=== PATIENT | male | born 1995 | race Caucasian/White ===

== ENCOUNTER 2018-08-26 10:25 | Emergency (ER) | payer SELFPAY ==
[2018-08-26] MEDS ORDERED: IBUPROFEN 400 MG TAB ONE (11:17)
[2018-08-26 11:25] LABS: Absolute Lymphocytes (CBC) 2.2 K/uL (0.7-4.9); Absolute Neutrophil 5.3 K/uL (1.8-8.0); Basophils % 0.7 % (0-1.3); Eosinophils % 1.2 % (0-4.4); Hematocrit 44.6 % (39.6-49.0); Lymphocytes % 25.1 % (15.3-44.8); MPV 8.8 fL (7.6-11.3); Monocytes % 11.7 % (3.3-12.3); RBC Red Blood Cell Count 4.77 M/uL (4.33-5.43)
--- NOTE | 2018-08-26 11:34 | RAD REPORT ---
EXAM DESCRIPTION: RAD - Chest Single View - 08/26/2018 11:23 am CLINICAL HISTORY: CHEST PAIN Chest pain. COMPARISON: No comparisons FINDINGS: Portable technique limits examination quality. The lungs are grossly clear. The heart is normal in size. No displaced fractures. IMPRESSION: No acute intrathoracic process suspected.
--- NOTE | 2018-08-26 11:57 | EKG ---
Test Date: 2018-08-26 Test Time: 10:34:56 Post Form Remover: AMANDA MEASUREMENT RESULTS: Intervals: Rate: 72 MO: 150 QRSD: 80 QT: 366 QTc: 400 [place]: P: 44 MO: 150 QRS: 88 T: 57 INTERPRETIVE STATEMENTS: Normal sinus rhythm with sinus arrhythmia Normal ECG No previous ECG available for comparison Electronically Signed On 08-26-18 11:57:04 ELECTROTYPE CASTER by Jason Michael
[2018-08-26 12:31] LABS: BUN Blood Urea Nitrogen 14 mg/dL (7-18); Bicarbonate 29 mmol/L (21-32); Glucose Level 87 mg/dL (74-106); Potassium 4.6 mmol/L (3.5-5.1); Sodium Level 139 mmol/L (136-145); Troponin (Emerg Dept Use Only) < 0.02 ng/mL (0.0-0.045)
--- NOTE | 2018-08-26 12:59 | ER ---
Nurse's Notes [facility] Name: Chinyere Kearney Age: 22 yrs Sex: Male : 1995 Arrival Date: 08/26/2018 Time: 10:29 Bed 13 Private MD: None, None Diagnosis: Chest pain, unspecified;Chest Wall Pain Presentation: 08/26 10:34 Presenting complaint: Patient states: i have chest pain on my L upper chest, its hj started on Aug 21; denies SOB; radiates to my L armpit; denies N/V; denies F/C;. Transition of care: patient was not received from another setting of care. Onset of symptoms was August 26, 2018. Risk Assessment: Do you want to hurt yourself or someone else? Patient reports no desire to harm self or others. Initial Sepsis Screen: Does the patient meet any 2 criteria? No. Patient's initial sepsis screen is negative. Does the patient have a suspected source of infection? No. Patient's initial sepsis screen is negative. Care prior to arrival: None. 10:34 Method Of Arrival: Ambulatory 10:34 Acuity: RISSA 3 hj Triage Assessment: 10:35 General: Appears in no apparent distress. uncomfortable, Behavior is calm, cooperative, hj appropriate for age. Pain: Complains of pain in chest Pain currently is 6 out of 10 on a pain scale. Cardiovascular: Reports chest pain. Historical: - Allergies: 10:35 No Known Allergies; hj - Home Meds: 10:35 None [Active]; hj - PMHx: 10:35 Kidney stones; hj - PSHx: 10:35 None; hj - Immunization history:: Adult Immunizations up to date. - Social history:: Smoking status: Patient uses tobacco products, Patient uses alcohol, Patient uses alcohol, on a daily basis. "Pint of whiskey and 6 pack of beers per day." Last drink was yesterday. - Ebola Screening: : Patient negative for fever greater than or equal to 101.5 degrees Fahrenheit, and additional compatible Ebola Virus Disease symptoms Patient denies exposure to infectious person Patient denies travel to an Ebola-affected area in the 21 days before illness onset. Screenin:36 Abuse screen: Denies threats or abuse. Denies injuries from another. Nutritional hj screening: No deficits noted. Tuberculosis screening: No symptoms or risk factors identified. Fall Risk None identified. Assessment: 10:36 Pain: Pain radiates to L armpit Pain began 2 wseeks. hj 11:12 General: Appears in no apparent distress. uncomfortable, Behavior is calm, cooperative, jl7 appropriate for age. Pain: Complains of pain in anterior aspect of left upper chest Pain radiates to left axilla Pain currently is 7 out of 10 on a pain scale. Pain began August 21, 2018 Is continuous. Neuro: Level of Consciousness is awake, alert, obeys commands, Oriented to person, place, time, situation. Cardiovascular: Heart tones S1 S2 present Patient's skin is warm and dry. Respiratory: Airway is patent Respiratory effort is even, unlabored, Respiratory pattern is regular, symmetrical, Breath sounds are clear bilaterally. GI: No signs and/or symptoms were reported involving the gastrointestinal system. : No signs and/or symptoms were reported regarding the genitourinary system. EENT: No signs and/or symptoms were reported regarding the EENT system. Derm: Skin is pink, warm \\T\\ dry. Musculoskeletal: No signs and/or symptoms reported regarding the musculoskeletal system. 12:30 Reassessment: No changes from previously documented assessment. Patient and/or family jl7 updated on plan of care and expected duration. Pain level reassessed. Patient is alert/active/playful, equal unlabored respirations, skin warm/dry/pink. Vital Signs: 10:36 BP 131 / 81; Pulse 79; Resp 18; Temp 97.1(TE); Pulse Ox 100% on R/A; Weight 63.5 kg; hj Height 5 ft. 11 in. (180.34 cm); Pain 6/10; 11:12 BP 126 / 92; Pulse 67; Resp 19 S; Pulse Ox 100% on R/A; Pain 7/10; jl7 12:19 BP 113 / 71; Pulse 64; Resp 19; Pulse Ox 99% on R/A; mh5 10:36 Body Mass Index 19.52 (63.50 kg, 180.34 cm) ED Course: 10:29 Patient arrived in ED. mr 10:30 None, None is Private Physician. mr 10:35 Triage completed. hj 10:36 Arm band placed on left wrist. hj 10:36 Patient has correct armband on for positive identification. Placed in gown. Bed in low hj position. Call light in reach. Side rails up X 1. commercial loan underwriter on. Pulse ox on. NIBP on. 10:36 Patient maintains SpO2 saturation greater than 95% on room air. hj 10:38 EKG done, by sewing techniques demonstrator. reviewed by Leonid Ferraro MD. 3 10:43 Leonid Ferraro MD is Attending Physician. kdr 11:04 Eddie Mcgraw, RN is Primary Nurse. jl7 11:23 X-ray completed. Portable x-ray completed in exam room. Patient tolerated procedure jb2 well. 11:24 CXR XRAY In Process Unspecified. EDMS 11:35 Initial lab(s) drawn, by tx, sent to lab. Inserted saline lock: 20 gauge antecubital [facility] area, using aseptic technique. Blood collected. 11:36 Basic Metabolic Panel Sent. [facility] 11:36 Troponin (Emerg Dept Use Only) Sent. [facility] 11:36 CBC with Diff Sent. [facility] 11:36 Troponin (emerg Dept Use Only) Sent. [facility] 11:36 Chem 7 Sent. [facility] 13:27 No provider procedures requiring assistance completed. IV discontinued, intact, jl7 bleeding controlled, No redness/swelling at site. Pressure dressing applied. Administered Medications: 11:11 Drug: Ibuprofen 800 mg Route: PO; jl7 12:30 Follow up: Response: No adverse reaction; Pain is decreased jl7 Outcome: 12:58 Discharge ordered by . kdr 13:27 Discharged to home ambulatory. jl7 13:27 Condition: stable 13:27 Discharge instructions given to patient, Instructed on discharge instructions, follow up and referral plans. medication usage, Demonstrated understanding of instructions, follow-up care, medications, Prescriptions given X 1. 13:28 Patient left the ED. jl7 Signatures: Dispatcher [employer] EDMS Leonid Ferraro MD MD kdr Rivera, Rosalina Dupreee 2 Vincent Arnold RN RN Cora Larsen [facility] Eddie Mcgraw RN RN jl7 Dolores Arreola 3 Corrections: (The following items were deleted from the chart) 10:38 10:36 Pulse 79bpm; Resp 18bpm; Pulse Ox 100% RA; Temp 97.1F Temporal; 63.5 kg; Height 5 hj ft. 11 in.; BMI: 19.5; Pain 6/10; hj
--- NOTE | 2018-08-26 12:59 | EDPHYS ---
Physician Documentation [facility] Name: Chinyere Kearney Age: 22 yrs Sex: Male : 1995 Arrival Date: 08/26/2018 Time: 10:29 Bed 13 Private MD: None, None ED Physician Leonid Ferraro HPI: 08/26 11:08 This 22 yrs old Male presents to ER via Ambulatory with complaints of Chest kdr Pain. 11:08 The patient or guardian reports chest pain that is located primarily in the anterior kdr chest wall, First place is midclavicular and 2 or 3rd intercostal space. Second place is mid axillary just above the nipple line Both are tender with palpation but no mass or deformity noted. The pain does not radiate. Associated signs and symptoms: The patient has no apparent associated signs or symptoms. The chest pain is described as aching, sharp. Duration: The patient or guardian reports a single episode, that is still ongoing, and unchanged. Severity of pain: At its worst the pain was moderate in the emergency department the pain is unchanged. The patient has not experienced similar symptoms in the past. The patient has not recently seen a physician. Historical: - Allergies: 10:35 No Known Allergies; hj - Home Meds: 10:35 None [Active]; hj - PMHx: 10:35 Kidney stones; hj - PSHx: 10:35 None; hj - Immunization history:: Adult Immunizations up to date. - Social history:: Smoking status: Patient uses tobacco products, Patient uses alcohol, Patient uses alcohol, on a daily basis. "Pint of whiskey and 6 pack of beers per day." Last drink was yesterday. - Ebola Screening: : Patient negative for fever greater than or equal to 101.5 degrees Fahrenheit, and additional compatible Ebola Virus Disease symptoms Patient denies exposure to infectious person Patient denies travel to an Ebola-affected area in the 21 days before illness onset. ROS: 11:08 Constitutional: Negative for fever, chills, and weight loss, Eyes: Negative for injury, kdr pain, redness, and discharge, ENT: Negative for injury, pain, and discharge, Neck: Negative for injury, pain, and swelling, Respiratory: Negative for shortness of breath, cough, wheezing, and pleuritic chest pain, Abdomen/GI: Negative for abdominal pain, nausea, vomiting, diarrhea, and constipation, Back: Negative for injury and pain, : Negative for injury, bleeding, discharge, and swelling, MS/Extremity: Negative for injury and deformity, Skin: Negative for injury, rash, and discoloration, Neuro: Negative for headache, weakness, numbness, tingling, and seizure activity. Psych: Negative for depression, anxiety, suicide ideation, homicidal ideation, and hallucinations, Allergy/Immunology: Negative for hives, rash, and allergies, Endocrine: Negative for neck swelling, polydipsia, polyuria, polyphagia, and marked weight changes, Hematologic/Lymphatic: Negative for swollen nodes, abnormal bleeding, and unusual bruising. 11:08 Cardiovascular: Positive for chest pain, with cough, with movement, Constant. Exam: 11:08 Constitutional: This is a well developed, well nourished patient who is awake, alert, kdr and in no acute distress. Head/Face: Normocephalic, atraumatic. Eyes: Pupils equal round and reactive to light, extra-ocular motions intact. Lids and lashes normal. Conjunctiva and sclera are non-icteric and not injected. Cornea within normal limits. Periorbital areas with no swelling, redness, or edema. Neck: Trachea midline, no thyromegaly or masses palpated, and no cervical lymphadenopathy. Supple, full range of motion without nuchal rigidity, or vertebral point tenderness. No Meningismus. Cardiovascular: Regular rate and rhythm with a normal S1 and S2. No gallops, murmurs, or rubs. Normal PMI, no JVD. No pulse deficits. Respiratory: Lungs have equal breath sounds bilaterally, clear to auscultation and percussion. No rales, rhonchi or wheezes noted. No increased work of breathing, no retractions or nasal flaring. Abdomen/GI: Soft, non-tender, with normal bowel sounds. No distension or tympany. No guarding or rebound. No evidence of tenderness throughout. Back: No spinal tenderness. No costovertebral tenderness. Full range of motion. Skin: Warm, dry with normal turgor. Normal color with no rashes, no lesions, and no evidence of cellulitis. MS/ Extremity: Pulses equal, no cyanosis. Neurovascular intact. Full, normal range of motion. Neuro: Awake and alert, GCS 15, oriented to person, place, time, and situation. Cranial nerves II-XII grossly intact. Motor strength 5/5 in all extremities. Sensory grossly intact. Cerebellar exam normal. Normal gait. Psych: Awake, alert, with orientation to person, place and time. Behavior, mood, and affect are within normal limits. 11:08 Chest/axilla: Inspection: normal, Palpation: tenderness, that is mild, of the anterior aspect of left upper chest and left lateral anterior chest, that partially reproduces the patient's complaints. Vital Signs: 10:36 BP 131 / 81; Pulse 79; Resp 18; Temp 97.1(TE); Pulse Ox 100% on R/A; Weight 63.5 kg; hj Height 5 ft. 11 in. (180.34 cm); Pain 6/10; 11:12 BP 126 / 92; Pulse 67; Resp 19 S; Pulse Ox 100% on R/A; Pain 7/10; jl7 12:19 BP 113 / 71; Pulse 64; Resp 19; Pulse Ox 99% on R/A; mh5 10:36 Body Mass Index 19.52 (63.50 kg, 180.34 cm) MDM: 11:08 Data reviewed: vital signs, nurses notes, shelter records, lab test result(s), kdr EKG, radiologic studies. 12:58 Patient medically screened. [facility] 08/26 11:02 Order name: Troponin (emerg Dept Use Only) [facility] 08/26 11:02 Order name: CBC with Diff kdr 08/26 11:02 Order name: Chem 7 kdr 08/26 11:03 Order name: Troponin (Emerg Dept Use Only); Complete Time: 12:48 EDDC 08/26 11:03 Order name: CBC with Automated Diff; Complete Time: 12:48 EDDC 08/26 11:03 Order name: Basic Metabolic Panel; Complete Time: 12:48 EDDC 08/26 10:38 Order name: EKG; Complete Time: 10:38 08/26 11:02 Order name: CXR XRAY; Complete Time: 12:48 [facility] Administered Medications: 11:11 Drug: Ibuprofen 800 mg Route: PO; jl7 12:30 Follow up: Response: No adverse reaction; Pain is decreased jl7 Disposition: 08/26/18 12:58 Discharged to Home. Impression: Chest pain, unspecified, Chest Wall Pain. - Condition is Stable. - Discharge Instructions: Chest Wall Pain, [id number], Nonspecific Chest Pain, [id number]. - Prescriptions for Ibuprofen 600 mg Oral Tablet - take 1 tablet by ORAL route every 6 hours As needed take with food; 15 tablet. - Medication Reconciliation Form, Thank You Letter form. - Follow up: Private Physician; When: 2 - 3 days; Reason: If symptoms return, Further diagnostic work-up, Recheck today's complaints, Continuance of care, Re-evaluation by your physician. - Problem is new. - Symptoms have improved. Signatures: Dispatcher [employer] EDMS Leonid Ferraro MD MD kdr Joaquin, Henry RN RN hj Eddie Mcgraw RN RN jl7 Corrections: (The following items were deleted from the chart) 13:28 12:58 08/26/2018 12:58 Discharged to Home. Impression: Chest pain, unspecified; Chest jl7 Wall Pain. Condition is Stable. Forms are Medication Reconciliation Form, Thank You Letter, Antibiotic Education, Prescription Opioid Use. Follow up: Private Physician; When: 2 - 3 days; Reason: If symptoms return, Further diagnostic work-up, Recheck today's complaints, Continuance of care, Re-evaluation by your physician. Problem is new. Symptoms have improved. kdr
== END 2018-08-26 13:28 | disposition home or self-care (01) ==
LOC: ER 10:25
DX: R07.89 Other chest pain (principal); Z72.0 Tobacco use
CPT/HCPCS: 36415; 71045; 80048; 84484; 85025; 93005; 99285

== ENCOUNTER 2021-09-12 14:51 | Emergency (ER) | payer SELFPAY | END 2021-09-12 15:22 | disposition left against medical advice (07) | LOC: ER 14:51 | DX: Z02.9 Encounter for administrative examinations, unspecified (principal) ==